=== PATIENT | male | born 1950 | race Caucasian/White ===

== ENCOUNTER 2017-03-21 11:48 | Day surgery (SDC) | payer OTHER ==
[~2017-03-21] VITALS: Ht 160 cm; Wt 79.9 kg
[2017-03-21 13:25] VITALS: Ht 160 cm; Wt 79.9 kg
[2017-03-21] MEDS ORDERED: nystatin TOPICAL (13:44)
[2017-03-21] MEDS ORDERED: triamcinolone TOP (13:44)
[2017-03-21] MEDS ORDERED: lisinopril PO (13:44)
[2017-03-21] MEDS ORDERED: januvia PO (13:44)
[2017-03-21] MEDS ORDERED: nystatin PO ×2 (13:44)
[2017-03-21 14:08] VITALS: BP 148/77; PULSE 66; RESP 18
[2017-03-21] MEDS ORDERED: PROPOFOL 40 ML ONE (14:25)
[2017-03-21] MEDS ORDERED: LIDOCAINE 2% (SDV) 5 ML INJ ONE (14:25)
[2017-03-21] MEDS ORDERED: FENTAnyl 50 MCG/ML VIAL ONE (14:25)
[2017-03-21] MEDS ORDERED: MIDAZOLAM 1 MG/ML 2 ML INJ ONE (14:25)
[2017-03-21 15:35] VITALS: BP 145/83; PULSE 60; RESP 16
[2017-03-21] MEDS ORDERED: ONDANSETRON 4 MG INJ ONE (16:14)
[2017-03-21] MEDS ORDERED: DIPHENHYDRAMINE 50 MG INJ ONE (16:45)
[2017-03-21] MEDS ORDERED: FAMOTIDINE 20 MG INJ ONE (17:25)
[2017-03-21] MEDS ORDERED: METOCLOPRAMIDE 10 MG INJ ONE (17:25)
[2017-03-21] MEDS ORDERED: NALOXONE (0.4 MG/ML) INJ ONE (17:31)
--- NOTE | 2017-03-22 02:41 | GILP ---
DATE OF PROCEDURE: NAME OF PROCEDURE: Esophagogastroduodenoscopy with biopsies. SURGEON: Julio Stephen MD HISTORY AND INDICATIONS: The patient is being evaluated for dyspepsia and a family history of colon cancer. PREMEDICATION: Monitored anesthesia care by anesthesiologist. INSTRUMENT USED: Olympus panendoscope. TECHNIQUE: After informed consent, with the patient/relatives understanding the procedure, its david cations, potential risks and complications including but not limited to: allergic reaction, bleeding , perforation or infection, and after all pertinent questions were answered to the patients satisfac tion, the patient/relatives signed witnessed informed consent. Following this, premedication was administered slowly IV push under careful cardiovascular and respi ratory monitoring with pulse oximetry, automatic blood pressure and research geologist. Once the sedative effect was achieved the patient was place in the left lateral decubitus, the panen doscope was introduced and advanced under visual control. Careful examination of the upper gastrointestinal tract both on insertion as well as withdrawal of t he instrument disclosed the following findings: ESOPHAGUS: The distal esophagus shows erythema and edema of the mucosa of a moderate degree. STOMACH: Upon entrance to the stomach, air was insufflated. The gastric ahumada distended normally. The mucosa of the fundus, body and antrum of the stomach was carefully examined, shows erythema and edema of the mucosa of a moderate degree. Biopsies were obtained to rule out H. pylori infection. PYLORUS: The pylorus appears patent and within normal limits with no evidence of gastric outlet obs truction. DUODENUM: The duodenal mucosa was carefully examined in the duodenal bulb as well as the second por tion of the duodenum and appears unremarkable with no evidence of duodenitis, ulcer or neoplasm. The instrument was then withdrawn. The patient tolerated the procedure well and was transferred out of the endoscopy suite awake and in good condition to continue recovery under observation IMPRESSION: 1. Distal esophagitis. 2. Gastritis, rule out Helicobacter pylori infection. Biopsies obtained. PLAN: The patient will be treated with PPIs, i.e., omeprazole 40 mg daily. Pathology will be revie wed as soon as available. Further recommendation will depend on patient's clinical course. Dictated By: JULIO STEPHEN MS/ZULMA Conf#: [id number] DID#: [id number]
--- NOTE | 2017-03-22 02:50 | GILP ---
DATE OF PROCEDURE: NAME OF PROCEDURE: Colonoscopy with polyp ablation, colonoscopy with biopsies and localization tatt oo. SURGEON: Julio Stephen MD HISTORY AND INDICATIONS: The patient ____ here for high-risk colorectal cancer screening with famil y history (father) of colon cancer. PREMEDICATION: Monitored anesthesia care by anesthesiologist. INSTRUMENT USED: Olympus colonoscope. PREPARATION: Adequate. TECHNIQUE: After informed consent, with the patient/relatives understanding the procedure, its david cations potential risks and complications including but not limited to: allergic reaction, bleeding, perforation, infection, missed lesions and after all pertinent questions were answered to the patie nt's satisfaction, the patient/relatives signed the witnessed informed consent. Following this, premedication was administered slowly IV push by under careful cardiovascular and re spiratory monitoring with pulse oximetry, automatic blood pressure and proof sorter. Once the sedativ e effect was achieved, the patient was placed in the left lateral decubitus position, digital rectal examination was performed. The colonoscope was then introduced and advanced under visual control th roughout all segments of the colon including: the rectum, sigmoid, descending colon, splenic flexure , transverse colon, hepatic flexure, ascending colon and finally reaching the cecum which was clearl y identified by transillumination, finger indentation and the ileocecal valve. Careful examination o f the mucosa of the lower gastrointestinal tract both on insertion as well as withdrawal of the inst rument disclosed the following findings: Rectal Examination: No evidence of perirectal disease, no masses. Colonic Mucosa: The colonic mucosa is remarkable for presence of a 4 mm polyp in the mid ascending colon measuring approximately 4 mm. The polyp was completely ablated with biopsy forceps. Subsequent to this, a cluster of polyps measuring approximately 1.5 cm was noted in proximal ascendi ng colon. This area cannot be completely excised. Multiple biopsies were obtained. Localization t attoo was applied. The ileocecal valve was clearly identified and appears unremarkable. Exam of th e remainder of the mucosa shows no abnormalities with exception of moderate-sized internal hemorrhoi ds. The instrument was then withdrawn. The patient tolerated the procedure well and was transferred out of the endoscopy suite awake and in good condition to continue recovery under observation. IMPRESSION: 1. A 4 mm polyp, mid ascending colon, ablated. 2. Cluster of polyps measuring approximately 1.5 cm in the proximal ascending colon. Multiple biop sies obtained. Localization tattoo applied. 3. Moderate-sized internal hemorrhoids. PLAN: The patient will be followed up as an outpatient. Pathology will be reviewed as soon as jean carlos negro, and further recommendation will depend on the patient's clinical course as well as review of biopsies. If the lesion proves to be adenomatous in nature, surgical resection will be recommended as endoscopic resection is not feasible. Dictated By: JULIO HANDY Conf#: [id number] DID#: [id number]
== END 2017-03-21 19:20 | disposition home or self-care (01) ==
LOC: GIL 11:48
PROVIDERS: ATTEND Internal Medicine Gastroenterology
DX: D12.2 Benign neoplasm of ascending colon (principal); K64.8 Other hemorrhoids; K20.8 Other esophagitis; K29.70 Gastritis, unspecified, without bleeding; I10 Essential (primary) hypertension; E66.9 Obesity, unspecified; Z68.31 Body mass index [BMI] 31.0-31.9, adult
CPT/HCPCS: 43239; 45380; 82962; 88305; 88312; J1200; J2250; J2310; J2405; J2765; J3010; Z7610